=== PATIENT | female | born 1970 | race Caucasian/White ===

== ENCOUNTER → 2017-03-19 | Outpatient (REF) ==
[~2017-03-19] MED LIST: ASPI-1471 PO; CITA-141 PO; LEVO88TA43 PO; MONT10TA PO; MULT-1372 PO; OMEP40CA48 PO; PROG100C PO
[2017-03-19 14:00] LABS: LDL CHOLESTEROL 85 mg/dl
== END ==
DX: Z02.9 Encounter for administrative examinations, unspecified (principal)

== ENCOUNTER → 2017-04-26 | Outpatient (CLI) | payer OTHER | LOC: LAB 09:23 | PROVIDERS: ATTEND Nurse Practitioner Family | DX: E89.41 Symptomatic postprocedural ovarian failure (principal) | CPT/HCPCS: 36415; 82670; 83001; 84403 ==

== ENCOUNTER → 2017-05-14 | Outpatient (CLI) | payer OTHER ==
--- NOTE | 2017-05-15 10:10 | RADIOLOGY IMAGING REPORT ---
FAC[facility] PATIENT NAME: JERRY ESCALERA : [id number] MR: [id number] V: [id number] EXAM DATE: ORDERING PHYSICIAN: SANTI HODGE TECHNOLOGIST: Mikki Voss PROCEDURE:BILATERAL DIAGNOSTIC DIGITAL MAMMOGRAM WITH CAD ASSISTED INTERPRETATION & 3D TOMOSYNTHESIS COMPARISON:Prior mammograms 07/22/14, 06/17/14, 05/21/13 INDICATIONS:RIGHT BREAST LUMP 12 O'CLOCK SENSE BREAST REDUCTION FINDINGS: A small amount of fibroglandular tissue is seen throughout the breasts. Areas of fat necrosis in the approximate 12 o'clock position of both breasts are again seen. The parenchymal pattern has remained stable allowing for difference in mammographic technique & patient positioning. There is no evidence of malignant appearing mass, malignant appearing calcifications or other secondary sign of malignancy in either breast. DIAGNOSTIC CATEGORY 2--BENIGN FINDING. RECOMMENDATIONS: ROUTINE MAMMOGRAM AND CLINICAL EVALUATION. IMPRESSION: BIRADS 2: Benign finding No significant abnormality is seen Dictated by: Chula Prieto M.D. on 05/14/2017 at 17:20 Transcribed by: SURESH on 05/15/2017 at 8:35 Approved by: Chula Prieto M.D. on 05/15/2017 at 10:09 [facility]
== END ==
LOC: MAMO 01:21
PROVIDERS: ATTEND Nurse Practitioner Family
DX: N63.21 Unspecified lump in the left breast, upper outer quadrant (principal); N63.11 Unspecified lump in the right breast, upper outer quadrant
CPT/HCPCS: 77062; 77066

== ENCOUNTER → 2018-05-21 | Outpatient (CLI) | payer OTHER | LOC: LAB 13:46 | PROVIDERS: ATTEND Nurse Practitioner Family | DX: E89.41 Symptomatic postprocedural ovarian failure (principal) | CPT/HCPCS: 36415; 82670; 83001; 84403 ==